=== PATIENT | male | born 1995 | race Two or more races ===

== ENCOUNTER 2018-02-12 15:53 | Emergency (ER) | payer MEDICAID, OTHER ==
[~2018-02-12] VITALS: Ht 162.6 cm; Wt 68.0 kg
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
[2018-02-12] MEDS ORDERED: KETOROLAC TROMETHAMINE 30 MG INJ IVP ONE (16:15)
[2018-02-12] MEDS ORDERED: ONDANSETRON 4 MG/2 ML VIAL IV ONE (16:15)
[2018-02-12] MEDS ORDERED: MORPHINE SULFATE 2 MG/1 ML DISP.SYRIN IV ONE (16:15)
[2018-02-12] MEDS ORDERED: ONDANSETRON 4 MG/2 ML VIAL ONE (17:23)
[2018-02-12] MEDS ORDERED: MORPHINE SULFATE 2 MG/1 ML DISP.SYRIN ONE (17:23)
[2018-02-12] MEDS ORDERED: KETOROLAC TROMETHAMINE 30 MG INJ ONE (17:23)
[2018-02-12] MEDS ORDERED: FLUORESCEIN SODIUM 1 MG STRIP OP ONE (17:30)
[2018-02-12] MEDS ORDERED: TETRACAINE HCL 0.5% OPHT DROP 2 ML BOTTLE OP ONE (17:30)
[2018-02-12] MEDS ORDERED: FLUORESCEIN SODIUM 1 MG STRIP ONE (17:41)
[2018-02-12] MEDS ORDERED: TETRACAINE HCL 0.5% OPHT DROP 2 ML BOTTLE ONE (17:41)
[2018-02-12] MEDS ORDERED: HYDROMORPHONE 1 MG/1 ML DISP.SYRIN IV ONE (18:30)
[2018-02-12] MEDS ORDERED: HYDROMORPHONE 1 MG/1 ML DISP.SYRIN ONE (18:49)
--- NOTE | 2018-02-12 19:11 | NUR ---
Assumed care of pt at this time. Pt is currently resting in bed with eyes closed. Respirations even + unlabored. Left orbital eye swelling & nasal swelling noted. Will ctm.
--- NOTE | 2018-02-12 19:15 | NUR ---
Faxed over information to Myriam Hahn. Pending call back.
--- NOTE | 2018-02-12 20:09 | NUR ---
Followed up with Sachin Hahn, no specialist available. Faxed over information to Hadley Santos.
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
--- NOTE | 2018-02-12 20:52 | NUR ---
Pt is awake, alert, oriented x 4. Pt requesting for food but notified MD & was told to hold off.
--- NOTE | 2018-02-12 21:34 | NUR ---
Received call from Hadley Santos from [facility] (intake) & was told that surgeon declined this pt.
--- NOTE | 2018-02-12 22:03 | NUR ---
Called [facility] & requested pt transfer for higher level of care, however there are only peds & OB beds available. Notified nursing lead refinery supervisor.
--- NOTE | 2018-02-12 22:06 | NUR ---
Pt's mother at bedside. Pt is resting in bed waiting for transfer placement.
--- NOTE | 2018-02-12 22:28 | NUR ---
Spoke to Ced from [facility] & faxed over pt's info. Pending response.
--- NOTE | 2018-02-12 22:40 | NUR ---
Received call from Ced ([facility]) with transfer information. Pt to be transferred to [facility] + [facility]. Accepting MD: Dr. Choe Phone# for report: [phone]
--- NOTE | 2018-02-12 22:45 | NUR ---
Lacie Vila for transport to [facility] + [facility]. Trip #[id number]. ETA 1 hr 15 min @ 0000.
--- NOTE | 2018-02-12 22:51 | NUR ---
Gave report to Karen ([facility] + [place]).
--- NOTE | 2018-02-13 00:21 | NUR ---
[facility] here to transfer pt to [facility] + [facility]. VSS. NAD noted.
== END 2018-02-13 00:29 | disposition short-term general hospital (02) ==
LOC: ER 15:55
DX: S02.32XA Fracture of orbital floor, left side, initial encounter for closed fracture (principal); S02.2XXA Fracture of nasal bones, initial encounter for closed fracture; M79.632 Pain in left forearm; F12.10 Cannabis abuse, uncomplicated; Y04.2XXA Assault by strike against or bumped into by another person, initial encounter; Y93.89 Activity, other specified; Y92.89 Other specified places as the place of occurrence of the external cause; Y99.8 Other external cause status
CPT/HCPCS: 29125; 70450; 70486; 73090; 96374; 96375; 99285; J1170; J1885; J2270; J2405; A4663

== ENCOUNTER 2020-10-24 12:09 | Emergency (ER) | payer SELFPAY ==
[~2020-10-24] VITALS: Ht 162.6 cm; Wt 63.5 kg
--- NOTE | 2020-10-24 12:31 | NUR ---
PT IS IN ROOM #2B. DR ARECHIGA EVALUATED THE PT.
[2020-10-24 12:49] LABS: MEAN CORPUSCULAR HEMOGLOBIN 29.8 uug (23.8-33.4); MEAN CORPUSCULAR VOLUME 86.5 fL (73.0-96.2); PLATELET COUNT (AUTO) 302 K/uL (152-348)
[2020-10-24 13:04] LABS: BILIRUBIN,TOTAL 0.7 mg/dL (0.2-1.0); POTASSIUM 3.1 mmol/L (3.5-5.1); TOTAL PROTEIN, SERUM 7.8 g/dL (6.4-8.2)
--- NOTE | 2020-10-24 16:56 | NUR ---
PT WAS D/C'd TO HOME AFTER DR ARECHIGA EVALUATION. D/C INSTRUCTIONS GIVEN TO THE PT BY DR ARECHIGA.
[2020-10-24 16:57] VITALS: BP 133/68
== END 2020-10-24 16:58 | disposition home or self-care (01) ==
LOC: ER 12:09
DX: F15.10 Other stimulant abuse, uncomplicated (principal); R55 Syncope and collapse; F19.10 Other psychoactive substance abuse, uncomplicated; J45.909 Unspecified asthma, uncomplicated; Z88.4 Allergy status to anesthetic agent
CPT/HCPCS: 36415; 70450; 85025; 93005; A4663